=== PATIENT | female | born 1950 | race Caucasian/White ===

== ENCOUNTER → 2016-12-02 | Outpatient (CLI) | payer BC ==
[~2016-12-02] MED LIST: CELEXA40 MG PO; LEVOTHYROXINE0.05 M1 PO; NOLVADEX 1010 MG/TAB PO; PRILOSEC40 MG PO; TRAZODO50 MG PO
== END ==
LOC: MC.RAD 08:00
DX: Z12.31 Encounter for screening mammogram for malignant neoplasm of breast (principal)

== ENCOUNTER → 2017-12-15 | Outpatient (CLI) | payer BC | LOC: MC.RAD 07:34 | DX: Z12.31 Encounter for screening mammogram for malignant neoplasm of breast (principal); D05.12 Intraductal carcinoma in situ of left breast ==

== ENCOUNTER → 2018-06-13 | Outpatient (CLI) | payer BC ==
[~2018-06-13] MED LIST changes: +ARIMIDEX1 MG PO; +B-12 500 MCG PO; +LEVOXYL0.088 MG PO; +OMEGA-3 1000 MG1 CAP PO; +ZEBETA 5MG5 MG PO
== END ==
LOC: COL.RAD 14:26
DX: M47.812 Spondylosis without myelopathy or radiculopathy, cervical region (principal); M48.02 Spinal stenosis, cervical region; M99.71 Connective tissue and disc stenosis of intervertebral foramina of cervical region

== ENCOUNTER 2018-06-20 14:00 | Outpatient (RCR) | payer BC | END 2018-07-24 | disposition home or self-care (01) | LOC: MKS.ESL.PT | DX: G54.0 Brachial plexus disorders (principal); Z79.899 Other long term (current) drug therapy ==

== ENCOUNTER → 2018-12-31 | Outpatient (CLI) | payer BC | LOC: MC.RAD 08:40 | DX: Z12.31 Encounter for screening mammogram for malignant neoplasm of breast (principal) ==

== ENCOUNTER 2019-05-22 16:30 | Outpatient (RCR) | payer BC | END 2019-07-01 12:36 | disposition home or self-care (01) | LOC: MKS.ESL.PT 16:30 | DX: M77.8 Other enthesopathies, not elsewhere classified (principal) ==

== ENCOUNTER 2019-06-26 11:00 | Outpatient (RCR) | payer BC | END 2019-07-01 12:36 | disposition home or self-care (01) | LOC: MKS.ESL.PT 11:00 | DX: M54.5 Low back pain (principal) ==

== ENCOUNTER → 2019-11-29 | Outpatient (CLI) | payer BC | LOC: MC.RAD 12:58 | DX: N63.20 Unspecified lump in the left breast, unspecified quadrant (principal); N64.59 Other signs and symptoms in breast; Z98.890 Other specified postprocedural states | CPT/HCPCS: G0279 ==

== ENCOUNTER → 2020-01-23 | Outpatient (CLI) | payer BC | LOC: COL.RAD 07:38 | DX: R19.04 Left lower quadrant abdominal swelling, mass and lump (principal) ==

== ENCOUNTER 2022-02-24 08:06 | Outpatient (RCR) | payer MEDICARE | END 2022-02-27 | LOC: MKS.ESL.PT | DX: M70.62 Trochanteric bursitis, left hip (principal) ==